=== PATIENT | female | born 1955 | race Caucasian/White ===

== ENCOUNTER → 2017-01-19 | Day surgery (SDC) | payer MEDICARE, OTHER ==
[~2017-01-19] MED LIST: ACETAMINOPHEN325 MG PO; ALBUTEROL17 G1 IH; ALBUTEROL17 GM INH; APRISO0.375 GM PO; ASPIRIN81 M1 PO; ASPIRIN81 MG PO; ATACAND16 MG PO; BACTRIM DS TABL1 TAB PO; COL-RITE50 MG PO; DESYREL50 MG PO; FLONASE 0.05% N16 G1; FLONASE16 GM; FLOVENT7.9 GM INH; FLUOXETINE HCL40 MG PO; HYDROCHLOROTHIA25 MG PO; HYDROCODON-ACE1 EAC1 PO; HYDROCODON-ACE1 EAC9 PO; HYDROXYZINE PAM25 MG PO; KEFLEX PO; LANTUS100 U/ML SUBQ; LEVAQUIN750 MG PO; LISINOPRIL PO; LOSARTAN POTASS50 MG PO; LYRICA PO; METFORMIN PO; NEURONTIN600 MG PO; OXYGEN INH; PRILOSEC20 MG PO; QVAR7.3 G1 INH; STIOLTO RESPIMAT4 GM INH; VICODIN 5/500 T1 TAB PO; VITAMIN B122500 MC1 PO; ZYRTEC PO
--- NOTE | ~2017-01-19 | OR ---
Unit #: [id number]: [id number] Patient: DIANA HICKS [id number] [address] [id number] [id number] O MR#: [id number] NAME: DIANA HICKS ROOM: Date of Procedure: 01/19/2017 Admission Date: 01/19/2017 Surgeon: Luis E Hester M.D. : 1955 Attending Physician: Luis E Hester M.D. Primary Care Physician: Haley Yanez A.P.R.N. OPERATIVE REPORT PROCEDURE PERFORMED Colonoscopy with snare polypectomy. INDICATIONS FOR PROCEDURE Average risk for colorectal cancer. MEDICATIONS Monitored anesthesia. POSTOPERATIVE FINDINGS 1. Multiple polyps, one in ascending, one in transverse, one in sigmoid colon. They were all 4 to 6 mm, snared and sent for histopathology. 2. Prep was poor . PLAN Repeat colonoscopy in 3 years. Follow up on the pathology report. DESCRIPTION OF PROCEDURE The patient was explained of the procedure, risks, and benefits along with the risks and benefits of anesthesia. She was brought to the endoscopy room. Propofol anesthesia was given. Rectal exam was done, which was normal. Colonoscope was lubricated, passed up the rectum, advanced under direct vision all the way to the cecum. Cecum was identified by ileocecal valve and appendiceal orifice. I then started to pull the scope out careful looking. Multiple polyps were seen as described. They were snared and sent for histopathology. I retroflexed in the rectum, small hemorrhoids seen. The scope was gently pulled out. She tolerated it well. Dictated by... Latasha Frederick/kian TD: 01/19/2017 17:18 JOB #: [id number] Unit #: [id number] #: [id number] Patient: DIANA HICKS OPERATIVE REPORT Page 1 of 1 X Luis E Hester MD PROCEDURE OPERATIVE NOTE
== END | disposition home or self-care (01) ==
LOC: COPS 08:52
DX: Z12.11 Encounter for screening for malignant neoplasm of colon (principal); D12.4 Benign neoplasm of descending colon; D12.5 Benign neoplasm of sigmoid colon; I10 Essential (primary) hypertension; E11.9 Type 2 diabetes mellitus without complications; J44.9 Chronic obstructive pulmonary disease, unspecified; K21.9 Gastro-esophageal reflux disease without esophagitis; F17.210 Nicotine dependence, cigarettes, uncomplicated; Z86.73 Personal history of transient ischemic attack (TIA), and cerebral infarction without residual deficits; Z88.0 Allergy status to penicillin; Z88.8 Allergy status to other drugs, medicaments and biological substances; Z79.82 Long term (current) use of aspirin; Z79.899 Other long term (current) drug therapy; Z90.710 Acquired absence of both cervix and uterus
CPT/HCPCS: 82947; 88305